=== PATIENT | female | born 1970 | race Caucasian/White ===

== ENCOUNTER → 2017-02-16 | Outpatient (CLI) | payer SELFPAY | END | disposition home or self-care (01) | LOC: MW.CHFP 14:44 | PROVIDERS: ATTEND Physician Assistant | DX: R39.9 Unspecified symptoms and signs involving the genitourinary system (principal) | CPT/HCPCS: 81001 ==

== ENCOUNTER 2019-04-20 13:38 | Emergency (ER) | payer SELFPAY ==
--- NOTE | 2019-04-20 13:58 | EDM.PDOC ---
ED HPI GENERAL MEDICAL PROBLEM - General Chief Complaint: Flank Pain Stated Complaint: PAIN DOWN LEFT SIDE Time Seen by Provider: 04/20/19 13:43 Source of Information: Reports: Patient History Limitations: Reports: No Limitations - History of Present Illness INITIAL COMMENTS - FREE TEXT/NARRATIVE: HISTORY AND PHYSICAL: History of present illness: 48-year-old female presenting today for lower back pain on the left side. Patient reports that pain started two days ago. Pain radiates to the left hip. Pain increases with activity and is relieved with rest. Patient denies any injury or trauma causing the pain. Patient states the pain has been worse after sitting at her desk at work for long periods of time. Patient denies any health history and has not taken anything for her symptoms. Patient denies fever, chills, chest pain, shortness of breath, or cough. Denies headache, neck stiff ness, change in vision, syncope, or near syncope. Denies nausea, vomiting, abdominal pain, diarrhea, constipation, or dysuria. Has not noted any blood in urine or stool. Patient has been eating and drinking appropriately. Patient denies urinary/stool retention or incontinence, or saddle anesthesia. Review of systems: As per history of present illness and below otherwise all systems reviewed and negative. Past medical history: As per history of present illness and as reviewed below otherwise noncontributory. Surgical history: As per history of present illness and as reviewed below otherwise noncontributory. Social history: See social history for further information Family history: As per history of present illness and as reviewed below otherwise noncontributory. Physical exam: General: Patient is alert, oriented, and in no acute distress. Patient sitting comfortably on exam table. HEENT: Atraumatic, normocephalic, pupils equal and reactive bilaterally, negative for conjunctival pallor or scleral icterus, mucous membranes moist, TMs normal bilaterally, throat clear, neck supple, nontender, trachea midline. No drooling or trismus noted. No meningeal signs. No hot potato voice noted. Lungs: Clear to auscultation, breath sounds equal bilaterally, chest nontender. Heart: S1S2, regular rate and rhythm without overt murmur Abdomen: Soft, nondistended, nontender. Negative for masses or hepatosplenomegaly. Negative for costovertebral tenderness. Pelvis: Stable nontender. Genitourinary: Deferred. Rectal: Deferred. Skin: Intact, warm, dry. No lesions or rashes noted. Extremities/musculoskeletal: Atraumatic, negative for cords or calf pain. Neurovascular unremarkable. Pain to palpation of the iliac crest/left hip. Patient has full ROM/strength of bilateral lower extremity joints. Capillary refill of left lower extremity <2 seconds with dorsalis pedis and posterior tibial pulses grossly intact. Tip toe and heel gait intact without deficit. Neuro: Awake, alert, oriented. Cranial nerves II through XII unremarkable. Cerebellum unremarkable. Motor and sensory unremarkable throughout. Exam nonfocal. Notes: Dr. Vasquez verbally involved in patient care. Patient has several allergies to, use antibiotics for urinary tract infection. Patient states she most commonly uses Macrobid. Discussed importance of following up with urology. Voices understanding and is agreeable to plan of care. Denies any further questions or concerns at this time. Diagnostics: UA, hip XR, CBC, CMP, abdominal pelvic CT Therapeutics: None. Prescription: Macrobid, Pyridium Impression: Urinary tract infection Multiple renal calculi Plan: 1. Alternative ibuprofen and Tylenol as needed. Take medication as prescribed. 2. Follow up with urology as discussed. Return to ER as needed as discussed. Definitive disposition and diagnosis as appropriate pending reevaluation and review of above. Left Flank Pain Score (Numeric/FACES): 2 - Related Data Allergies Allergy/AdvReac Type Severity Reaction Status Date / Time acetaminophen [From Tylenol] Allergy Other Verified 04/20/19 14:13 amoxicillin [From Augmentin] Allergy Hives Verified 04/20/19 14:13 aspirin Allergy Hives Verified 04/20/19 14:13 ciprofloxacin [From Cipro] Allergy Fainting Verified 04/20/19 14:13 clavulanic acid Allergy Hives Verified 04/20/19 14:13 [From Augmentin] codeine Allergy Hives Verified 04/20/19 14:13 ferrous fumarate Allergy Other Verified 04/20/19 14:13 [From Centrum] ferrous gluconate Allergy Other Verified 04/20/19 14:13 [From Centrum] folic acid [From Centrum] Allergy Other Verified 04/20/19 14:13 lutein [From Centrum] Allergy Other Verified 04/20/19 14:13 lycopene [From Centrum] Allergy Other Verified 04/20/19 14:13 multivit with calcium, iron, Allergy Other Verified 04/20/19 14:13 and other minerals [From Centrum] multivitamin [From Centrum] Allergy Other Verified 04/20/19 14:13 multivitamin with iron,other Allergy Other Verified 04/20/19 14:13 minerals [From Centrum] multivitamin with minerals Allergy Other Verified 04/20/19 14:13 [From Centrum] Sulfa (Sulfonamide Allergy Rash Verified 04/20/19 14:13 Antibiotics) Home Meds: Home Meds . [No Known Home Meds] 04/20/19 [History] Past Medical History Genitourinary History: Reports: None [employer] History: Reports: Endocrine/Metabolic History: Reports: Other (See Below) Other Endocrine/Metabolic History: Goiter - Past Surgical History Female Surgical History: Reports: Tubal Ligation Endocrine Surgical History: Reports: None Social & Family History - Family History Family Medical History: Noncontributory - Tobacco Use Smoking Status *Q: Current Every Day Smoker Years of Tobacco use: 8 Packs/Tins Daily: 1 - Caffeine Use Caffeine Use: Reports: Coffee, Soda - Recreational Drug Use Recreational Drug Use: No ED ROS GENERAL - Review of Systems Review Of Systems: ROS reveals no pertinent complaints other than HPI. ED EXAM, RENAL/ - Physical Exam Exam: See Below (see dictation) Course - Vital Signs Last Recorded V/S: Last Vital Signs Temp 37.2 C 04/20/19 13:49 Pulse 93 04/20/19 16:06 Resp 18 04/20/19 16:06 BP 103/63 04/20/19 16:06 Pulse Ox 96 04/20/19 16:06 - Orders/Labs/Meds Orders: Active Orders 24 hr Category Date Time Status COMPREHENSIVE METABOLIC PN,CMP [CHEM] Stat Lab 04/20/19 15:11 Received CULTURE URINE [RM] Stat Lab 04/20/19 13:55 Received Labs: Laboratory Tests 04/20/19 04/20/19 Range/Units 13:55 15:11 WBC 10.77 (4.0-11.0) K/uL RBC 4.23 L (4.30-5.90) M/uL Hgb 14.0 (12.0-16.0) g/dL Hct 41.5 (36.0-46.0) % MCV 98.1 H (80.0-98.0) fL MCH 33.1 H (27.0-32.0) pg MCHC 33.7 (31.0-37.0) g/dL RDW Std Deviation 45.6 (28.0-62.0) fl RDW Coeff of Mauricio 13 (11.0-15.0) % Plt Count 198 (150-400) K/uL MPV 9.80 (7.40-12.00) fL Neut % (Auto) 74.1 (48.0-80.0) % Lymph % (Auto) 10.7 L (16.0-40.0) % [place] % (Auto) 14.9 (0.0-15.0) % Eos % (Auto) 0.1 (0.0-7.0) % Baso % (Auto) 0.2 (0.0-1.5) % Neut # (Auto) 8.0 H (1.4-5.7) K/uL Lymph # (Auto) 1.2 (0.6-2.4) K/uL [place] # (Auto) 1.6 H (0.0-0.8) K/uL Eos # (Auto) 0.0 (0.0-0.7) K/uL Baso # (Auto) 0.0 (0.0-0.1) K/uL Nucleated RBC % 0.0 /100WBC Nucleated RBCs # 0 K/uL Urine Color YELLOW Urine Appearance SLT CLOUDY Urine pH 6.0 (5.0-8.0) Ur Specific [place] 1.025 (1.001-1.035) Urine Protein 30 H (NEGATIVE) mg/dL Urine Glucose (UA) NEGATIVE (NEGATIVE) mg/dL Urine Ketones NEGATIVE (NEGATIVE) mg/dL Urine Occult Blood LARGE H (NEGATIVE) Urine Nitrite POSITIVE H (NEGATIVE) Urine Bilirubin NEGATIVE (NEGATIVE) Urine Urobilinogen 1.0 (<2.0) EU/dL Ur Leukocyte Esterase SMALL H (NEGATIVE) Urine RBC 0-2 (0-2/HPF) Urine WBC 25-35 (0-5/HPF) Ur Epithelial Cells FEW (NONE-FEW) Urine Bacteria 3+ H (NEGATIVE) Urine Mucus FEW (NONE-MOD) Departure - Departure Time of Disposition: 16:18 Disposition: Home, Self-Care 01 Clinical Impression: Renal calculi Urinary tract infection Qualifiers: Urinary tract infection type: acute cystitis Hematuria presence: with hematuria Qualified Code(s): N30.01 - Acute cystitis with hematuria - Discharge Information Referrals: PCP,None [Primary Care Provider] - Forms: ED Department Discharge Additional Instructions: The following information is given to patients seen in the emergency department who are being discharged to home. This information is to outline your options for follow-up care. We provide all patients seen in our emergency department with a follow-up referral. The need for follow-up, as well as the timing and circumstances, are variable depending upon the specifics of your emergency department visit. If you don't have a primary care physician on staff, we will provide you with a referral. We always advise you to contact your personal physician following an emergency department visit to inform them of the circumstance of the visit and for follow-up with them and/or the need for any referrals to a consulting specialist. The emergency department will also refer you to a specialist when appropriate. This referral assures that you have the opportunity for follow-up care with a specialist. All of these measure are taken in an effort to provide you with optimal care, which includes your follow-up. Under all circumstances we always encourage you to contact your private physician who remains a resource for coordinating your care. When calling for follow-up care, please make the office aware that this follow-up is from your recent emergency room visit. If for any reason you are refused follow-up, please contact the [facility] Emergency Department at and asked to speak to the emergency department charge nurse. [facility] [address] [place] [id number] [address] [facility] [address] [place] [address] 1. Alternative ibuprofen and Tylenol as needed. Take medication as prescribed. 2. Follow up with urology as discussed. Return to ER as needed as discussed. - My Orders Last 24 Hours: My Active Orders 04/20/19 13:55 CULTURE URINE [RM] Stat 04/20/19 15:11 COMPREHENSIVE METABOLIC PN,CMP [CHEM] Stat - Assessment/Plan Last 24 Hours: My Active Orders 04/20/19 13:55 CULTURE URINE [RM] Stat 04/20/19 15:11 COMPREHENSIVE METABOLIC PN,CMP [CHEM] Stat
--- NOTE | 2019-04-20 15:31 | CR ---
INDICATION: Pain with no history of injury. COMPARISON: None available. FINDINGS: The left hip was examined with PA and frogleg lateral views. An AP view of the pelvis is obtained for a total of three views. There is no sign of fracture or dislocation of the left hip. The left femoral head and acetabulum are in anatomic alignment. There is no sign of degenerative disease of the left hip. The right hip is unremarkable. The SI joints and pubic symphysis are normal in appearance. The rest of the bony pelvis and soft tissues are normal in appearance. IMPRESSION: Normal left hip and pelvis. Dictated by Hamzah Peoples MD @ Apr 20 2019 3:30PM Signed by Dr. Hamzah Peoples @ Apr 20 2019 3:31PM
--- NOTE | 2019-04-20 15:33 | CR ---
HISTORY: Pain with no history of injury. COMPARISON: None available. FINDINGS: The lumbar spine was examined with AP, lateral, and lateral spot views for a total of three views. There is no sign of fracture or subluxation. The vertebral bodies are normal in height and they are in anatomic alignment. The disc spaces are normal in height as well. The visualized bony pelvis and bowel gas pattern are normal in appearance. IMPRESSION: Normal lumbar spine. Dictated by Hamzah Peoples MD @ Apr 20 2019 3:31PM Signed by Dr. Hamzah Peoples @ Apr 20 2019 3:32PM
--- NOTE | 2019-04-20 15:49 | CT ---
INDICATION: Left-sided abdominal pain and low back pain for the past few days. COMPARISON: None available TECHNIQUE: CT examination of the abdomen and pelvis was performed without contrast enhancement using 3 mm thick axial sections from the lung bases through the pubic symphysis. Oral contrast was not administered. Please note that all CT scans at this facility use dose modulation, iterative reconstruction, and/or weight-based dosing when appropriate to reduce radiation dose to as low as reasonably achievable. FINDINGS: In the abdomen, the unenhanced liver, spleen, pancreas, and adrenals are normal in appearance. There are multiple tiny nonobstructive calculi in both kidneys, 1 located in the interpolar region of the left kidney measuring 1 millimeter in diameter, 2 in the upper pole of the left kidney measuring 2 millimeters in diameter, and 3 located in the lower pole of the right kidney measuring 2 millimeters in diameter. Another 1 millimeter calculus is seen in the upper pole of the right kidney. There are several low-density regions in the upper pole of the left kidney consistent with cysts. The largest measures 2.0 centimeters in diameter. There is no sign of ureteral calculi, hydronephrosis, or hydroureter on either side to correlate with history of left-sided pain. There is mild soft tissue stranding in the fat surrounding the proximal left ureter, suggesting recent passage of a calculus. The gallbladder is normal in appearance. The abdominal aorta is normal in caliber with no sign of dilatation. There is no sign of retroperitoneal mass or adenopathy. The stomach, loops of small bowel, and colon in the abdomen are normal in appearance. In the pelvis, the appendix is normal in appearance with no sign of inflammatory process. The loops of small bowel and colon in the pelvis are normal in appearance. The uterus and adnexal regions are normal in appearance. The urinary bladder is normal in appearance. There is no sign of pelvic or inguinal mass or adenopathy. The lung bases are clear. The osseous structures are normal in appearance for the patient`s age. IMPRESSION: CT of the abdomen shows multiple tiny bilateral nonobstructive calculi seen in both kidneys. No sign of hydronephrosis, hydroureter, or ureterolithiasis to correlate with a history of left-sided pain. There is mild soft tissue stranding along the course of the proximal left ureter suggesting recent passage of a calculus. Several cysts seen in the left kidney, probably of no clinical concern. Normal CT of the pelvis without contrast. Please note that all CT scans at this facility use dose modulation, iterative reconstruction, and/or weight-based dosing when appropriate to reduce radiation dose to as low as reasonably achievable. Dictated by Hamzah Peoples MD @ Apr 20 2019 3:31PM Signed by Dr. Hamzah Peoples @ Apr 20 2019 3:46PM
[2019-04-20 16:15] LABS: CHLORIDE,CL 98 mmol/L (98-107); SODIUM,NA 131 mmol/L (136-145)
== END 2019-04-20 16:40 | disposition home or self-care (01) ==
LOC: MW.ED 13:38
DX: N30.01 Acute cystitis with hematuria (principal); N20.0 Calculus of kidney; F17.210 Nicotine dependence, cigarettes, uncomplicated; Z98.51 Tubal ligation status; Z88.2 Allergy status to sulfonamides; Z88.8 Allergy status to other drugs, medicaments and biological substances; Z88.5 Allergy status to narcotic agent; Z88.6 Allergy status to analgesic agent; Z88.1 Allergy status to other antibiotic agents
CPT/HCPCS: 36415; 72100; 72100-26; 73502-26-LT; 73502-LT; 74176; 74176-26; 80053; 81001; 85025; 87086; 87088; 87186; 99284; 99284-25

== ENCOUNTER 2021-11-19 18:28 | Emergency (ER) | payer SELFPAY ==
[2021-11-19 20:36] LABS: CORONAVIRUS COVID-19 NAA NEGATIVE (NEGATIVE); INFLUENZA A NAA NEGATIVE (NEGATIVE); INFLUENZA B NAA NEGATIVE (NEGATIVE)
== END 2021-11-19 20:45 | disposition home or self-care (01) ==
LOC: MW.ED 18:28
DX: J06.9 Acute upper respiratory infection, unspecified (principal); Z88.0 Allergy status to penicillin; Z88.1 Allergy status to other antibiotic agents; Z88.5 Allergy status to narcotic agent; Z88.8 Allergy status to other drugs, medicaments and biological substances; Z88.2 Allergy status to sulfonamides; Z20.822 Contact with and (suspected) exposure to COVID-19
CPT/HCPCS: 0240U; 71045; 99283